=== PATIENT | male | born 1950 | race African-American/Black ===

== ENCOUNTER 2018-02-12 21:26 | Inpatient (IN) | payer MEDICAID, OTHER ==
[~2018-02-12] VITALS: Ht 193 cm; Wt 77.1 kg
[~2018-02-12 21:26] MED LIST: AMLO2.5T45 PO; ASPI-1158 PO; DEXT1TAB13 PO; DICL50TA7 PO; LISI2.5T47 PO; MAGNESIUM-VIT1 EACH PO; METH5TAB2 PO; TAMS0.4C31 PO
[2018-02-12] MEDS ORDERED: DEXTROSE 50% WATER 50ML SYRINGE IV ONE ×2 (21:45→22:15)
[2018-02-12] MEDS ORDERED: SODIUM CHLORIDE 0.9% 1,000 ML IV ONE (22:06)
[2018-02-12 22:53] LABS: BASOPHILS % 0.5 % (0.0-2.0); HEMATOCRIT. 42.3 % (42.0-52.0); HEMOGLOBIN. 13.8 g/dL (14.0-18.0); LYMPHOCYTES % 11.4 % (20.0-50.0); MEAN CORPUSCULAR HEMOGLOBIN 32.2 pg (28.0-32.0); MEAN CORPUSCULAR VOLUME 98.8 fL (80.0-94.0); MEAN PLATELET VOLUME 7.9 fl (7.4-10.4); MONOCYTES % 3.1 % (2.0-8.0); PLATELET 140 x1000/uL (130-400); RED BLOOD CELL COUNT 4.28 mill/uL (4.7-6.1); RED CELL DISTRIBUTION WIDTH 13.8 % (11.6-14.6)
[2018-02-12 22:56] LABS: CHLORIDE 105 mEq/L (98-107)
[2018-02-12 22:59] LABS: PROTHROMBIN TIME 10.5 sec (9.4-11.6)
[2018-02-12 23:00] LABS: ETHANOL BLOOD < 10 mg/dL
[2018-02-12 23:05] LABS: CREATINE KINASE 34 IU/L (39-308)
[2018-02-12 23:55] LABS: CLARITY URINE CLEAR (CLEAR); COLOR URINE YELLOW (YELLOW); KETONES URINE NEGATIVE (NEGATIVE); LEUKOCYTE ESTERASE URINE NEGATIVE (NEGATIVE); NITRITE URINE NEGATIVE (NEGATIVE); OCCULT BLOOD URINE NEGATIVE (NEGATIVE); PH URINE 5.5 (4.5-8.0); PROTEIN URINE 2+ (NEGATIVE); SPECIFIC GRAVITY URINE 1.013 (1.005-1.030)
[2018-02-13] VITALS (7 sets, daily range): BP systolic 114–156; BP diastolic 72–96
[2018-02-13 00:19] LABS: *AMPHETAMINES SCREEN URINE NEGATIVE (NEGATIVE); *BARBITURATES SCREEN URINE NEGATIVE (NEGATIVE); *BENZODIAZEPINES SCREEN URINE NEGATIVE (NEGATIVE)
[2018-02-13 00:20] LABS: *COCAINE SCREEN URINE NEGATIVE (NEGATIVE); CANNABINOID URINE SCREEN PRESUMTIVE POSITIVE (NEGATIVE); METHADONE URINE SCREEN PRESUMTIVE POSITIVE (NEGATIVE); OPIATES URINE SCREEN NEGATIVE (NEGATIVE); PHENCYCLIDINE URINE SCREEN NEGATIVE (NEGATIVE)
[2018-02-13] MEDS ORDERED: DEXT 10% WATER 1,000 ML IV ONE (01:00)
[2018-02-13] MEDS ORDERED: DEXTROSE 50% WATER 50ML SYRINGE IV ONE ×4 (01:00→11:31)
[2018-02-13] MEDS ORDERED: HYDRALAZINE 20MG/ML VIAL IV PRN (08:30)
[2018-02-13] MEDS ORDERED: DEXTROSE 10% WATER 500 ML IV SCH (08:30)
[2018-02-13] MEDS: DEXTROSE 50% WATER 50ML SYRINGE IV PRN ×4 (08:54→16:51)
[2018-02-13 08:55] LABS: CHLORIDE 104 mEq/L (98-107)
[2018-02-13] MEDS ORDERED: METHADONE HCL 5MG TABLET PO SCH (09:00)
[2018-02-13] MEDS: FUROSEMIDE 40MG TABLET PO SCH ×2 (17:44→18:08)
[2018-02-13] MEDS: BLOOD SUGAR DIAGNOSTIC STRIP TEST SCH ×2 (17:52→21:34)
[2018-02-13] MEDS: DEXT 10% WATER 1,000 ML IV SCH (18:07)
[2018-02-13] MEDS: TAMSULOSIN HCL 0.4MG SR CAPSULE PO SCH (18:08)
[2018-02-13] MEDS: LISINOPRIL 2.5MG TABLET PO SCH (18:08)
[2018-02-13] MEDS: AMLODIPINE 5MG TABLET PO SCH (18:09)
[2018-02-13] MEDS ORDERED: OCTREOTIDE ACETATE 50 MCG/ML 1ML SUBCUT NR (19:30)
[2018-02-14] VITALS (15 sets, daily range): BP systolic 114–148; BP diastolic 58–93
[2018-02-14] MEDS: DEXT 10% WATER 1,000 ML IV SCH ×3 (01:13→22:17)
[2018-02-14 05:53] LABS: AMMONIA 36 uMol/L (<32)
[2018-02-14 06:04] LABS: CHLORIDE 102 mEq/L (98-107)
[2018-02-14 06:26] LABS: T4 FREE 0.89 ng/dL (0.76-1.46)
[2018-02-14] MEDS: BLOOD SUGAR DIAGNOSTIC STRIP TEST SCH ×4 (07:17→22:17)
[2018-02-14 08:19] LABS: HEMATOCRIT. 42.8 % (42.0-52.0); HEMOGLOBIN. 14.1 g/dL (14.0-18.0); MEAN CORPUSCULAR HEMOGLOBIN 32.1 pg (28.0-32.0); MEAN CORPUSCULAR VOLUME 97.5 fL (80.0-94.0); MEAN PLATELET VOLUME 8.6 fl (7.4-10.4); PLATELET 148 x1000/uL (130-400); RED BLOOD CELL COUNT 4.39 mill/uL (4.7-6.1); RED CELL DISTRIBUTION WIDTH 13.6 % (11.6-14.6)
[2018-02-14] MEDS: AMLODIPINE 5MG TABLET PO SCH ×2 (08:30→22:14)
[2018-02-14] MEDS: LISINOPRIL 2.5MG TABLET PO SCH (08:30)
[2018-02-14] MEDS: TAMSULOSIN HCL 0.4MG SR CAPSULE PO SCH (08:30)
[2018-02-14] MEDS: FUROSEMIDE 40MG TABLET PO SCH ×2 (08:30→10:10)
[2018-02-14] MEDS: ASPIRIN 81MG EC TABLET PO SCH (08:30)
[2018-02-14] MEDS: ENOXAPARIN 40MG/0.4ML SYR SUBCUT SCH (10:10)
[2018-02-14 12:06] LABS: VITAMIN B12 SERUM 916 pg/mL (211-911)
[2018-02-14 14:09] LABS: PLATELET ESTIMATE NORMAL
[2018-02-14] MEDS: METHADONE HCL 10MG TABLET PO SCH (15:13)
[2018-02-14] MEDS: METHADONE HCL 5MG TABLET PO SCH (15:14)
[2018-02-15] VITALS: BP 98/67
[2018-02-15 04:00] VITALS: BP 124/76
[2018-02-15] MEDS: BLOOD SUGAR DIAGNOSTIC STRIP TEST SCH ×4 (06:55→21:01)
[2018-02-15] MEDS: ASPIRIN 81MG EC TABLET PO SCH (06:58)
[2018-02-15 08:00] VITALS: BP 114/72
[2018-02-15] MEDS: TAMSULOSIN HCL 0.4MG SR CAPSULE PO SCH (09:00)
[2018-02-15 09:10] LABS: ALPHA FETOPROTEIN TUMOR MARKER 3.2 ng/mL (0.0-8.3)
[2018-02-15] MEDS: ENOXAPARIN 40MG/0.4ML SYR SUBCUT SCH (09:14)
[2018-02-15] MEDS: METHADONE HCL 5MG TABLET PO SCH (09:15)
[2018-02-15] MEDS: FUROSEMIDE 40MG TABLET PO SCH (09:15)
[2018-02-15] MEDS: METHADONE HCL 10MG TABLET PO SCH (09:16)
[2018-02-15] MEDS: LISINOPRIL 2.5MG TABLET PO SCH (09:24)
[2018-02-15] MEDS: AMLODIPINE 5MG TABLET PO SCH ×2 (09:25→21:00)
[2018-02-15] MEDS: DEXT 10% WATER 1,000 ML IV SCH (11:03)
[2018-02-15 12:00] VITALS: BP 103/55
[2018-02-15 13:07] LABS: C-PEPTIDE 3.1 ng/mL (1.1-4.4); INSULIN 15.8 uIU/mL (2.6-24.9)
[2018-02-15 16:00] VITALS: BP 98/58
[2018-02-15 20:00] VITALS: BP 99/75
[2018-02-15] MEDS ORDERED: IPRATROPIUM/ALBUTEROL 0.5-3(2.5)MG/3ML NEB HHN PRN (22:15)
[2018-02-16] VITALS: BP 115/71
[2018-02-16 04:00] VITALS: BP 104/64
[2018-02-16] MEDS ORDERED: DEXT 10% WATER 1,000 ML IV SCH (05:34)
[2018-02-16] MEDS: BLOOD SUGAR DIAGNOSTIC STRIP TEST SCH ×4 (07:14→21:01)
[2018-02-16 08:00] VITALS: BP 114/66
[2018-02-16] MEDS: LISINOPRIL 2.5MG TABLET PO SCH (09:00)
[2018-02-16] MEDS: AMLODIPINE 5MG TABLET PO SCH ×2 (09:00→21:01)
[2018-02-16] MEDS: ASPIRIN 81MG EC TABLET PO SCH (09:10)
[2018-02-16] MEDS: ENOXAPARIN 40MG/0.4ML SYR SUBCUT SCH (09:10)
[2018-02-16] MEDS: FUROSEMIDE 40MG TABLET PO SCH (09:11)
[2018-02-16] MEDS: TAMSULOSIN HCL 0.4MG SR CAPSULE PO SCH (09:11)
[2018-02-16] MEDS: METHADONE HCL 5MG TABLET PO SCH (09:11)
[2018-02-16] MEDS: METHADONE HCL 10MG TABLET PO SCH (09:11)
[2018-02-16 12:00] VITALS: BP 103/65
[2018-02-16 16:00] VITALS: BP 103/61
[2018-02-16 20:00] VITALS: BP 111/70
[2018-02-17] VITALS: BP 96/53
[2018-02-17 04:00] VITALS: BP 103/77
[2018-02-17] MEDS: BLOOD SUGAR DIAGNOSTIC STRIP TEST SCH ×2 (07:40→12:40)
[2018-02-17 08:00] VITALS: BP 109/61
[2018-02-17] MEDS: ASPIRIN 81MG EC TABLET PO SCH (08:51)
[2018-02-17] MEDS: AMLODIPINE 5MG TABLET PO SCH (08:52)
[2018-02-17] MEDS: FUROSEMIDE 40MG TABLET PO SCH (08:52)
[2018-02-17] MEDS: LISINOPRIL 2.5MG TABLET PO SCH (08:52)
[2018-02-17] MEDS: ENOXAPARIN 40MG/0.4ML SYR SUBCUT SCH (08:58)
[2018-02-17] MEDS: TAMSULOSIN HCL 0.4MG SR CAPSULE PO SCH (09:00)
[2018-02-17] MEDS: METHADONE HCL 10MG TABLET PO SCH (09:02)
[2018-02-17] MEDS: METHADONE HCL 5MG TABLET PO SCH (09:03)
[2018-02-17 09:10] LABS: HEMATOCRIT 40.4 % (42.0-52.0); HEMOGLOBIN 13.6 g/dL (14.0-18.0); MEAN CORPUSCULAR HEMOGLOBIN 32.8 pg (28.0-32.0); MEAN CORPUSCULAR VOLUME 97.5 fL (80.0-94.0); RED BLOOD CELL COUNT 4.14 mill/uL (4.7-6.1); RED CELL DISTRIBUTION WIDTH 13.6 % (11.6-14.6)
[2018-02-17 09:24] LABS: CHLORIDE 100 mEq/L (98-107)
[2018-02-17 11:27] LABS: PLATELET 184 x1000/uL (130-400)
[2018-02-17 12:00] VITALS: BP 108/70
[2018-02-17 13:22] VITALS: BP 110/70
[2018-02-18 17:11] LABS: PRO INSULIN 9.9 pmol/L (0.0-10.0)
[2018-02-19 04:13] LABS: INSULIN AUTOANTIBODIES 5.2 uU/mL (.)
[2018-02-19 13:09] LABS: INSULIN 4.9 uIU/mL (2.6-24.9)
[2018-02-20 13:07] LABS: PRO INSULIN 4.5 pmol/L (0.0-10.0)
== END 2018-02-17 15:35 | disposition home or self-care (01) | DRG 424 ==
LOC: ER 21:38 → CVICU 02-13 01:18 → EDBEDREQ 02-13 01:23 → ENRESERV 02-13 08:39 → CANRESERV 02-13 08:39 → EDBEDREQSVC 02-13 09:05 → ENRESERV 02-13 15:28 → 7WST 02-14 11:59
PROVIDERS: ADMIT Internal Medicine; ATTEND Internal Medicine
DX: E16.2 Hypoglycemia, unspecified (principal); E43 Unspecified severe protein-calorie malnutrition; G93.41 Metabolic encephalopathy; I10 Essential (primary) hypertension; B35.1 Tinea unguium; D64.9 Anemia, unspecified; K76.89 Other specified diseases of liver; J44.9 Chronic obstructive pulmonary disease, unspecified; F11.20 Opioid dependence, uncomplicated; E16.0 Drug-induced hypoglycemia without coma; F17.200 Nicotine dependence, unspecified, uncomplicated; N40.0 Benign prostatic hyperplasia without lower urinary tract symptoms; B19.20 Unspecified viral hepatitis C without hepatic coma; D75.89 Other specified diseases of blood and blood-forming organs; I25.2 Old myocardial infarction; Z95.1 Presence of aortocoronary bypass graft; Z79.82 Long term (current) use of aspirin; Z68.20 Body mass index [BMI] 20.0-20.9, adult
CPT/HCPCS: 36415; 71045; 80048; 80053; 80305; 81003; 82105; 82140; 82533; 82550; 82607; 82947; 82962; 83036; 83525; 83880; 83921; 84206; 84305; 84439; 84443; 84484; 84681; 85025; 85027; 85610; 86337; 93005; 93306; 96361; 96374; 96376; 99285; G0482; J1650; J2354; J7030

== ENCOUNTER 2018-06-18 12:33 | Emergency (ER) | payer MEDICAID ==
[2018-06-20] MEDS ORDERED: METH-611 PO (16:55)
== END 2018-06-18 13:45 | disposition left against medical advice (07) ==
LOC: ER 13:42
DX: E16.2 Hypoglycemia, unspecified (principal); Z53.21 Procedure and treatment not carried out due to patient leaving prior to being seen by health care provider

== ENCOUNTER 2018-09-12 00:23 | Emergency (ER) | payer MEDICAID ==
[~2018-09-12] VITALS: Ht 193 cm; Wt 113.0 kg
[~2018-09-12 00:23] MED LIST changes: -AMLO2.5T45 PO; -ASPI-1158 PO; -DEXT1TAB13 PO; -DICL50TA7 PO; -LISI2.5T47 PO; -MAGNESIUM-VIT1 EACH PO; +METH-611 PO; -METH5TAB2 PO; -TAMS0.4C31 PO
[2018-09-12 02:24] VITALS: BP 112/68
[2018-09-12] MEDS ORDERED: TETANUS, DIPHTHERIA, PERTUSSIS VAC/PF 0.5ML (>7YR OLD) IM ONE (02:45)
[2018-09-12] MEDS ORDERED: LIDOCAINE 1%/EPI 1:100,000 10 ML VIAL IJ ONE (02:45)
[2018-09-12] MEDS ORDERED: BACITRACIN ZINC OINT UDPKT TOP ONE (02:45)
== END 2018-09-12 05:39 | disposition home or self-care (01) ==
LOC: ER 00:23
DX: L02.414 Cutaneous abscess of left upper limb (principal); J45.909 Unspecified asthma, uncomplicated; I10 Essential (primary) hypertension; E11.9 Type 2 diabetes mellitus without complications; F11.10 Opioid abuse, uncomplicated
CPT/HCPCS: 10060; 99283; J3490

== ENCOUNTER 2018-11-09 02:48 | Inpatient (IN) | payer MEDICAID ==
[~2018-11-09] VITALS: Ht 193 cm; Wt 71.7 kg
[2018-11-09 03:54] LABS: BASOPHILS % 0.9 % (0.0-2.0); HEMATOCRIT. 40.5 % (42.0-52.0); LYMPHOCYTES % 10.7 % (20.0-50.0); MEAN CORPUSCULAR HEMOGLOBIN 31.8 pg (28.0-32.0); MEAN CORPUSCULAR VOLUME 99.1 fL (80.0-94.0); MEAN PLATELET VOLUME 7.8 fl (7.4-10.4); MONOCYTES % 5.6 % (2.0-8.0); NEUTROPHILS % 82.8 % (40.0-76.0); PLATELET 185 x1000/uL (130-400); RED BLOOD CELL COUNT 4.08 mill/uL (4.7-6.1); RED CELL DISTRIBUTION WIDTH 15.3 % (11.6-14.6)
[2018-11-09 03:57] LABS: CHLORIDE 109 mEq/L (98-107)
[2018-11-09] MEDS ORDERED: DEXTROSE 50% WATER 50ML SYRINGE IV ONE ×2 (05:00)
[2018-11-09] MEDS ORDERED: ACETAMINOPHEN 325MG TABLET PO PRN (12:45)
[2018-11-09] MEDS ORDERED: IPRATROPIUM/ALBUTEROL 0.5-3(2.5)MG/3ML NEB INH PRN (12:45)
[2018-11-09] MEDS ORDERED: ONDANSETRON HCL 4MG/2ML INJ IV PRN (12:45)
[2018-11-09] MEDS: ENOXAPARIN 40MG/0.4ML SYR SUBCUT SCH (13:00)
[2018-11-09 14:39] VITALS: BP 99/61
[2018-11-09 17:12] LABS: CHLORIDE 106 mEq/L (98-107)
[2018-11-09 17:14] LABS: BASOPHILS % 0.7 % (0.0-2.0); HEMATOCRIT. 41.6 % (42.0-52.0); HEMOGLOBIN. 13.4 g/dL (14.0-18.0); LYMPHOCYTES % 22.3 % (20.0-50.0); MEAN CORPUSCULAR HEMOGLOBIN 31.8 pg (28.0-32.0); MEAN CORPUSCULAR VOLUME 98.8 fL (80.0-94.0); MONOCYTES % 11.2 % (2.0-8.0); NEUTROPHILS % 65.8 % (40.0-76.0); PLATELET 155 x1000/uL (130-400); RED BLOOD CELL COUNT 4.21 mill/uL (4.7-6.1); RED CELL DISTRIBUTION WIDTH 15.2 % (11.6-14.6)
[2018-11-09] MEDS: DEXT 5%/0.45% NACL 1000ML 1,000 ML IV SCH (17:19)
[2018-11-09 20:00] VITALS: BP 94/64
[2018-11-09] MEDS: BLOOD SUGAR DIAGNOSTIC STRIP TEST SCH (21:34)
[2018-11-10] VITALS: BP 107/69
[2018-11-10 02:23] LABS: CLARITY URINE CLEAR (CLEAR); COLOR URINE YELLOW (YELLOW); KETONES URINE TRACE (NEGATIVE); LEUKOCYTE ESTERASE URINE 2+ (NEGATIVE); NITRITE URINE NEGATIVE (NEGATIVE); OCCULT BLOOD URINE NEGATIVE (NEGATIVE); PROTEIN URINE TRACE (NEGATIVE); SPECIFIC GRAVITY URINE 1.023 (1.005-1.030)
[2018-11-10 02:36] LABS: *AMPHETAMINES SCREEN URINE NEGATIVE (NEGATIVE); *BARBITURATES SCREEN URINE NEGATIVE (NEGATIVE)
[2018-11-10 02:37] LABS: *BENZODIAZEPINES SCREEN URINE NEGATIVE (NEGATIVE); *COCAINE SCREEN URINE PRESUMTIVE POSITIVE (NEGATIVE); CANNABINOID URINE SCREEN PRESUMTIVE POSITIVE (NEGATIVE); METHADONE URINE SCREEN PRESUMTIVE POSITIVE (NEGATIVE); OPIATES URINE SCREEN PRESUMTIVE POSITIVE (NEGATIVE); PHENCYCLIDINE URINE SCREEN NEGATIVE (NEGATIVE)
[2018-11-10 04:00] VITALS: BP 127/76
[2018-11-10] MEDS: BLOOD SUGAR DIAGNOSTIC STRIP TEST SCH ×4 (06:34→20:48)
[2018-11-10] MEDS: DEXT 5%/0.45% NACL 1000ML 1,000 ML IV SCH ×3 (06:47→19:02)
[2018-11-10 07:56] LABS: CHLORIDE 107 mEq/L (98-107)
[2018-11-10 08:00] VITALS: BP 113/61
[2018-11-10 10:18] LABS: BASOPHILS % 0.4 % (0.0-2.0); HEMATOCRIT. 40.3 % (42.0-52.0); HEMOGLOBIN. 13.1 g/dL (14.0-18.0); LYMPHOCYTES % 31.3 % (20.0-50.0); MEAN CORPUSCULAR VOLUME 98.6 fL (80.0-94.0); MEAN PLATELET VOLUME 8.4 fl (7.4-10.4); MONOCYTES % 13.9 % (2.0-8.0); NEUTROPHILS % 54.4 % (40.0-76.0); PLATELET 143 x1000/uL (130-400); RED BLOOD CELL COUNT 4.08 mill/uL (4.7-6.1); RED CELL DISTRIBUTION WIDTH 15.3 % (11.6-14.6)
[2018-11-10 11:56] LABS: FOLIC ACID (FOLATE) SERUM 9.9 ng/mL (>5.38)
[2018-11-10 12:00] VITALS: BP 109/71
[2018-11-10] MEDS: MULTIVITAMINS,THER W-MINERALS TABLET PO SCH (12:49)
[2018-11-10] MEDS: LEVOFLOXACIN 500MG TABLET PO SCH (12:50)
[2018-11-10] MEDS: THIAMINE HCL 100MG TABLET PO SCH (12:50)
[2018-11-10] MEDS: NITROFURANTOIN 100MG M/M CAPSULE PO SCH ×2 (12:50→20:48)
[2018-11-10] MEDS: FOLIC ACID 1MG TABLET PO SCH (12:50)
[2018-11-10] MEDS: ENOXAPARIN 40MG/0.4ML SYR SUBCUT SCH (12:54)
[2018-11-10 14:24] LABS: ETHANOL BLOOD < 10 mg/dL
[2018-11-10 14:29] LABS: CREATINE KINASE 122 IU/L (39-308)
[2018-11-10 14:30] LABS: T4 FREE 0.98 ng/dL (0.76-1.46)
[2018-11-10 16:00] VITALS: BP 110/68
[2018-11-10 20:00] VITALS: BP 118/75
[2018-11-11] VITALS: BP 141/79
[2018-11-11 04:00] VITALS: BP 138/83
[2018-11-11] MEDS: DEXT 5%/0.45% NACL 1000ML 1,000 ML IV SCH (05:12)
[2018-11-11] MEDS: BLOOD SUGAR DIAGNOSTIC STRIP TEST SCH ×2 (06:27→11:46)
[2018-11-11] MEDS: MULTIVITAMINS,THER W-MINERALS TABLET PO SCH (09:01)
[2018-11-11] MEDS: FOLIC ACID 1MG TABLET PO SCH (09:01)
[2018-11-11] MEDS: NITROFURANTOIN 100MG M/M CAPSULE PO SCH (09:01)
[2018-11-11] MEDS: THIAMINE HCL 100MG TABLET PO SCH (09:01)
[2018-11-11] MEDS: LEVOFLOXACIN 500MG TABLET PO SCH (11:38)
[2018-11-11 12:00] VITALS: BP 123/70
[2018-11-11] MEDS: ENOXAPARIN 40MG/0.4ML SYR SUBCUT SCH (13:00)
== END 2018-11-11 15:40 | disposition left against medical advice (07) | DRG 52 ==
LOC: ER 02:48 → 5WST 05:32 → EDBEDREQTM 05:34 → EDBEDREQ 05:34 → ENRESERV 06:48
PROVIDERS: ADMIT Internal Medicine; ATTEND Internal Medicine
PROC: 4A00X4Z Measurement of Central Nervous Electrical Activity, External Approach (ICD-10-PCS; principal; 2018-11-11)
DX: G92 Toxic encephalopathy (principal); E11.649 Type 2 diabetes mellitus with hypoglycemia without coma; N39.0 Urinary tract infection, site not specified; I10 Essential (primary) hypertension; Z53.21 Procedure and treatment not carried out due to patient leaving prior to being seen by health care provider; F14.10 Cocaine abuse, uncomplicated; B18.2 Chronic viral hepatitis C; J45.909 Unspecified asthma, uncomplicated; F11.90 Opioid use, unspecified, uncomplicated; F12.10 Cannabis abuse, uncomplicated; I25.2 Old myocardial infarction
CPT/HCPCS: 36415; 70551; 71045; 80048; 80076; 80305; 82140; 82550; 82607; 82746; 82962; 83036; 83880; 84439; 84443; 84481; 84484; 87077; 87186; 93005; 93970; 99285; G0482; J3490

== ENCOUNTER 2019-02-21 08:03 | Emergency (ER) | payer MEDICAID ==
[~2019-02-21] VITALS: Ht 177.8 cm; Wt 70.0 kg
[2019-02-21 08:08] VITALS: BP 0/0
[2019-02-21] MEDS ORDERED: EPINEPHRINE 0.1MG/ML (1:10,000) 10ML SYR ONE (08:10)
== END 2019-02-21 08:11 | disposition expired ==
LOC: ER 08:07
DX: I46.9 Cardiac arrest, cause unspecified (principal); J45.909 Unspecified asthma, uncomplicated; E11.9 Type 2 diabetes mellitus without complications; I10 Essential (primary) hypertension; I25.2 Old myocardial infarction; F11.20 Opioid dependence, uncomplicated
CPT/HCPCS: 31500; 99285; J3490